=== PATIENT | female | born 1960 | race American Indian/Alaskan Native ===

== ENCOUNTER 2017-07-08 07:41 | Day surgery (SDC) | payer OTHER ==
--- NOTE | 2017-07-08 08:35 | Anesthesia Consultation ---
Anesthesia Consult and Med Hx Date of service: 07/08/17 - Airway Anesthetic Teeth Evaluation: Partials ROM Head & Neck: Adequate Mental/Hyoid Distance: Adequate Mallampati Class: Class I Intubation Access Assessment: Good - Pulmonary Exam CTA: Yes - Cardiac Exam Cardiac Exam: RRR - Pre-Operative Health Status ASA Pre-Surgery Classification: ASA3 - Pulmonary Hx Smoking: Yes (40 pack years) - Cardiovascular System Hx Hypertension: Yes - Central Nervous System Hx Psychiatric Problems: Yes - Gastrointestinal Hx Gastroesophageal Reflux Disease: Yes (food related) - Other Systems Hx Alcohol Use: Yes (occas) Hx Cancer: No
[2017-07-08] MEDS ORDERED: NACL BACTERIOSTATIC INFILTRATI ONE (08:36)
--- NOTE | 2017-07-08 08:36 | Anesthesia Day of Surgery ---
Anesthesia Day of Surgery - Day of Surgery Patient Examined: Yes Patient H&P Reviewed: Yes Patient is NPO: Yes
[2017-07-08] MEDS ORDERED: DILAUDID IV PRN (08:38)
[2017-07-08] MEDS ORDERED: PEPCID IV NR (09:00)
[2017-07-08] MEDS ORDERED: LACTATED RINGERS 1,000 ML IV SCH (09:00)
[2017-07-08] MEDS: VERSED IV NR ×2 (09:08→09:15)
[2017-07-08] MEDS ORDERED: ZOFRAN IV PRN (09:30)
[2017-07-08] MEDS ORDERED: PERCOCET 5/325 PO PRN (09:30)
[2017-07-08] MEDS ORDERED: SUBLIMAZE ONE (09:34)
[2017-07-08] MEDS ORDERED: DIPRIVAN 10 MG/ML IV ONE ×2 (09:35→11:26)
[2017-07-08] MEDS ORDERED: XYLOCAINE MPF 2% ONE (09:35)
[2017-07-08] MEDS ORDERED: DECADRON ONE (09:35)
[2017-07-08] MEDS ORDERED: ZOFRAN ONE (09:35)
[2017-07-08] MEDS ORDERED: TRANSDERM-SCOP TD NR (10:00)
[2017-07-08] MEDS ORDERED: HYDROGEN PEROXIDE ONE (10:53)
[2017-07-08] MEDS ORDERED: XYLOCAINE 2%/ EPI 1:50,000 (DENTAL) INFILTRATI ONE ×2 (10:53→11:06)
[2017-07-08] MEDS ORDERED: ANTIBIOTIC OINT TP ONE ×2 (10:53→13:45)
[2017-07-08] MEDS ORDERED: FLOXIN OTIC ONE (10:53)
[2017-07-08] MEDS ORDERED: GELFOAM TP ONE ×2 (10:54→11:06)
[2017-07-08] MEDS ORDERED: ADRENALIN ONE (10:54)
[2017-07-08] MEDS ORDERED: ANCEF/STERILE WATER 2 GM/20 ML IV NR (11:00)
[2017-07-08] MEDS ORDERED: WATER FOR IRRIG STERILE IR ONE (11:06)
[2017-07-08] MEDS ORDERED: FLOXIN OTIC AU ONE (11:06)
[2017-07-08] MEDS ORDERED: ADRENALIN IV ONE (11:06)
[2017-07-08] MEDS ORDERED: NACL 0.9% IR ONE ×2 (11:06)
[2017-07-08] MEDS ORDERED: ePHEDrine SULFATE ONE (11:30)
[2017-07-08] MEDS ORDERED: LACTATED RINGERS 1,000 ML ONE (13:15)
[2017-07-08] MEDS ORDERED: NEO SYNEPHRINE ONE (13:16)
[2017-07-08] MEDS ORDERED: NACL 0.9% 100 ML ONE (13:16)
--- NOTE | 2017-07-08 14:27 | Short Stay Summary ---
Short Stay Documentation Date of service: 07/08/17 - Allergies and Medications Current Medications: Allergies Sulfa (Sulfonamide Antibiotics) Allergy (Verified 07/05/17 14:51) Unknown Home Medications Medication Instructions Recorded Confirmed Last Taken Type Duloxetine HCl [Cymbalta] 60 mg PO DAILY 07/05/17 07/08/17 07/07/17 History Losartan [Cozaar] 50 mg PO QDAY 07/05/17 07/08/17 07/08/17 06:00 History Pantoprazole Sodium [Pantoprazole 1 tab PO PRN PRN 07/05/17 07/08/17 06/24/17 History Sodium] clonazePAM [Clonazepam] 0.5 tab PO PRN PRN 07/05/17 07/08/17 07/07/17 History Ranitidine HCl [Zantac 150 MG TAB] 150 mg PO QDAY PRN 07/08/17 07/08/17 History Active Medications Famotidine (Pepcid) 20 mg IV PREOP NR Stop: 07/08/17 15:00 Last Admin: 07/08/17 09:06 Dose: 20 mg Hydromorphone HCl (Dilaudid) 0.5 mg IV Q10MIN PRN PRN Reason: Pain , Severe (7-10) Stop: 07/08/17 15:00 Lactated Ringer's (Lactated Ringers) 1,000 mls @ 100 mls/hr IV DIRECT ERYN Last Admin: 07/08/17 09:03 Dose: 100 mls/hr Midazolam HCl (Versed) 2 mg IV PREOP NR Stop: 07/08/17 23:59 Last Admin: 07/08/17 09:15 Dose: 1 mg - Brief post op/procedure progress note Date of procedure: 07/08/17 Pre-op diagnosis: 1. Right recurrent mastoid cholesteatoma; 2. Chronic otorrhea Post-op diagnosis: same Procedure: 1. Right revision mastoidectomy with conversion to tympanoplasty with complete canal wall down mastoidectomy 2. Monitoring of facial nerve 3. Microdissection using the operating microscope Anesthesia: other (General via laryngeal mask anesthesia) Findings: Granulation tissue with recurrent cholesteatoma in poorly performed previous mastoidectomy cavity. Surgeon: CHAVEZ VENTURA Estimated blood loss: minimal Pathology: list (Mastoid cholesteatoma) Specimen disposition: to lab Condition: stable - Disposition Condition at discharge: Good Short Stay Discharge Plan Activity: advance as tolerated Diet: advance as tolerated Wound: per your surgeon's advice (Leave dressing as is until f/u visit in 2 days.) Follow up with: CHAVEZ VENTURA MD [Staff Physician] - 48 Hours Prescriptions: HYDROcodone/ACETAMINOPHEN [[place] 7.5-325 Tablet] 1 each PO Q8HR #10 tablet Promethazine [Phenergan TAB] 12.5 mg PO Q8HR PRN #7 tab PRN Reason: Nausea
[2017-07-08] MEDS ORDERED: NORCO 7.5/325 PO SCH (15:52)
--- NOTE | 2017-07-08 16:36 | Operative Report ---
PRINCIPAL DIAGNOSES: 1. Right recurrent mastoid cholesteatoma. 2. Right chronic otorrhea. 3. Right chronic mastoiditis. PRINCIPAL SURGICAL PROCEDURE: 1. Right revision mastoidectomy with conversion to tympanoplasty with complete mastoidectomy, canal wall down. 2. Monitoring of facial nerve. 3. Microdissection using the operating microscope. SURGEON: Jeffry Juarez M.D. ANESTHESIA: General via laryngeal mask anesthesia. COMPLICATIONS: None. SPECIMENS: Excised cholesteatoma was submitted to pathology for permanent sectioning. ESTIMATED BLOOD LOSS: Not more than 10 mL of blood. INDICATION FOR SURGERY: The patient is a 57-year-old female who a number of years ago had tympanoplasty with mastoidectomy performed for cholesteatoma. Despite that, she continued to have chronic otorrhea from the ear and when we examined her there was granulation tissue in the mastoid with mucoid drainage, sometimes purulent drainage and with what appeared to be a recurrent or residual cholesteatoma in the posterior superior portion of the mastoidectomy cavity that was very poorly performed with a very high riding facial ridge, very difficult to access and essentially no meatoplasty, a revision mastoidectomy with conversion to tympanoplasty and complete canal wall down mastoidectomy was recommended with monitoring of facial nerve and microdissection technique using the operating microscope. DESCRIPTION OF PROCEDURE: The patient was taken to the operating room and was placed on the operating table in supine position. After satisfactory plane of general anesthesia via laryngeal mask anesthesia was achieved, the head was gently rotated to the left side exposing the right ear. Hair was shaved behind the right ear and Betadine was used to clean the retroauricular area and meatus and total of 3.6 mL of 2% Xylocaine in 1:50,000 epinephrine were injected into the retroauricular area in lateral aspect of external ear canal and meatal area. Ear was then prepped and draped in usual manner. Electrodes for monitoring of the facial nerve were inserted. After the patient was prepped and draped in the usual manner, a surgical procedure was started by making a retroauricular skin incision through the skin and subcutaneous tissue to the plane of the periosteum covering mastoid inferiorly and temporalis muscle superiorly. Some of fascia had been already harvested, but we were able to elevate the skin flap and identified sufficient amount of fascia, which was harvested and placed fascia press. Donor site was cauterized. T-type incision was made in the periosteum with a horizontal incision along the temporal line and second incision perpendicular to it towards mastoid tip and then periosteal flaps were elevated posteriorly, superiorly and anteriorly with the lateral aspect of the previous canal wall down cavity was identified. This was then transected and the canal wall down cavity was opened and self-retaining retractors were positioned. The sinodural angle was extremely narrow and it was filled with recurrent cholesteatoma material. This was mobilized with a small periosteal elevator and large round knife and following the very high facial ridge with a very narrow opening into the previous antral area and sinodural angle, we mobilized this cholesteatoma and removed it together with granulation tissue associated with it. Then, using a 4 mm cutting clare, we essentially widened and saucerized the mastoidectomy that was not done before. The substantial amount of cortical bone had to be removed to finish the saucerization. We skeletonized the sigmoid sinus and the middle fossa dura significantly widening this area and using the 4 mm romy clare stopped all the bleeding and made sure that no cholesteatoma matrix was left in some residual air cells. We then focused on lowering the facial ridge and this was done essentially to the level of the facial nerve that was skeletonized. Bone anterior and medial to the facial nerve was also opened and removed to widen the access to the middle ear. The tympanic membrane was essentially adherence to the promontory and facial tympanic segment of the facial nerve as well as the stapedial footplate since no superstructure was visible and we very gently this epithelial director of player personnel the named structures as well as opened the anterior attic as well. We then finalized the drilling of the anterior aspect of the mastoidectomy cavity as well as posterior area widening it laterally and then keeping the pledgets in the middle ear for hemostasis, we took the fascia press and trimmed on the Deon block and then left it to dry further. In the meantime, we created a generous meatoplasty with removal a portion of the conchal cartilage together with associated perichondrium and connective tissue and then made a Y incision in the meatal skin creating 3 flaps superior, inferior and a very small lateral that was sutured to the perichondrium covering the rest of the conchal bowl, inferior flap was sutured to the periosteum covering mastoid and superiorly flap was sutured to the temporalis muscle. We then elevated the tympanomeatal flap, placed fascia medial to the tympanomeatal flap and into the middle ear over the promontory over the mastoid segment of the facial nerve over the incudal buttress over the tympanic segment of the facial nerve over the lateral semicircular canal and then laid tympanomeatal flap over the fascia and then packed the entire cavity with moist Gelfoam soaked with ciprofloxacin. We then removed self-retaining retractors, 4-0 Vicryl was used to close the subcutaneous layer of skin incision. Skin incision itself was closed with 5-0 fast absorbing gut. Xeroform gauze impregnated with bacitracin ointment was placed into the meatoplasty and then we applied a mastoid dressing. Following completion of the surgical procedure, the patient was extubated in the operating room and then transferred to the recovery room in stable and satisfactory condition. [facility]# [id number] YEFRI/IRENA
[2017-07-08 19:17] VITALS: BP 107/75
== END 2017-07-08 16:32 | disposition home or self-care (01) ==
LOC: OR 07:41
PROVIDERS: ATTEND Otolaryngology Sleep Medicine
DX: H71.21 Cholesteatoma of mastoid, right ear (principal); H92.11 Otorrhea, right ear; H70.11 Chronic mastoiditis, right ear; Z88.2 Allergy status to sulfonamides; Z87.891 Personal history of nicotine dependence; K21.9 Gastro-esophageal reflux disease without esophagitis
CPT/HCPCS: 69645; 88304; A4217; A4649; J0171; J1100; J2250; J2370; J2405; J2704; J3010; J7120